=== PATIENT | male | born 1955 | race Caucasian/White ===

== ENCOUNTER 2021-09-29 09:53 | Outpatient (CLI) | payer MEDICARE | END 2021-09-29 09:54 | disposition home or self-care (01) | LOC: CT 09:53 | PROVIDERS: ATTEND Psychiatry & Neurology Neurology | DX: G25.0 Essential tremor (principal); G25.2 Other specified forms of tremor | CPT/HCPCS: 70450 ==

== ENCOUNTER 2023-03-23 08:36 | Outpatient (CLI) | payer MEDICARE, OTHER | END 2023-03-23 08:37 | disposition home or self-care (01) | LOC: NM 08:36 | PROVIDERS: ATTEND Psychiatry & Neurology Neurology | DX: G25.0 Essential tremor (principal) | CPT/HCPCS: 78803; A9584 ×2 ==

== ENCOUNTER 2023-12-30 10:27 | Outpatient (CLI) | payer MEDICARE | END 2023-12-30 10:28 | disposition home or self-care (01) | LOC: BICMRI 10:27 | PROVIDERS: ATTEND Psychiatry & Neurology Neurology | DX: R25.1 Tremor, unspecified (principal); J34.89 Other specified disorders of nose and nasal sinuses; I67.89 Other cerebrovascular disease | CPT/HCPCS: 70551 ==